=== PATIENT | female | born 1955 | race Caucasian/White ===

== ENCOUNTER 2018-09-05 13:16 | Outpatient (CLI) | payer BC ==
--- NOTE | 2018-09-05 13:29 | RAD ---
XR Chest Pa Lat STANDARD HISTORY: Cough COMPARISON: None FINDINGS: The heart size is normal. The lungs are well expanded without focal areas of consolidation, pneumothorax or pleural effusions. IMPRESSION: No radiographic evidence of acute cardiopulmonary process.
== END 2018-09-05 13:17 | disposition home or self-care (01) ==
LOC: BICRAD 13:16
PROVIDERS: ATTEND Allergy & Immunology
DX: R05 Cough (principal)
CPT/HCPCS: 71046